=== PATIENT | male | born 1945 | race Two or more races ===

== ENCOUNTER 2022-09-14 15:26 | Emergency (ER) | payer OTHER ==
[~2022-09-14] VITALS: Ht 167.6 cm; Wt 99.8 kg
[2022-09-14] MEDS ORDERED: AVAPRO150 MG (15:29)
[2022-09-14] MEDS ORDERED: TOPROL XL25 M1 (15:29)
[2022-09-15] MEDS ORDERED: HUMALOG100 UNIT/1 (13:56)
== END 2022-09-14 20:09 | disposition home or self-care (01) ==
LOC: ER 15:26
DX: J45.998 Other asthma (principal); K52.9 Noninfective gastroenteritis and colitis, unspecified; I10 Essential (primary) hypertension
CPT/HCPCS: 36415; 94640; 96365; 99284; J2930; J3490

== ENCOUNTER 2022-09-15 13:47 | Inpatient (IN) | payer OTHER ==
[~2022-09-15] VITALS: Ht 167.6 cm; Wt 99.8 kg
[~2022-09-15 13:47] MED LIST: AVAPRO150 MG; TOPROL XL25 M1
[2022-09-15] MEDS ORDERED: HUMALOG100 UNIT/1 (13:56)
[2022-09-22] MEDS ORDERED: METOPROLOL TART50 MG PO (17:03)
[2022-09-22] MEDS ORDERED: HUMALOG100 UNIT/1 SUBCUTANEO (17:03)
[2022-09-22] MEDS ORDERED: AVAPRO300 MG PO (17:03)
[2022-09-22] MEDS ORDERED: ELIQUIS5 MG PO (17:03)
[2022-09-22] MEDS ORDERED: Lantus 1000 UNITS/10 SUBCUTANEO ×2 (17:03)
[2022-09-22] MEDS ORDERED: LIPITOR40 M1 PO (17:03)
[2022-09-22] MEDS ORDERED: Procardia Xl 30MG TA PO (17:03)
== END 2022-09-22 17:31 | disposition home or self-care (01) | DRG 281 ==
LOC: ER 13:47 → ICU-2 19:53 → MEDJ 09-17 12:06
PROVIDERS: ADMIT Internal Medicine; ATTEND Internal Medicine
PROC: B24BZZZ Ultrasonography of Heart with Aorta (ICD-10-PCS; principal; 2022-09-15)
PROC: 4A12X4Z Monitoring of Cardiac Electrical Activity, External Approach (ICD-10-PCS; 2022-09-17)
DX: I48.92 Unspecified atrial flutter (principal); I21.A1 Myocardial infarction type 2; I13.0 Hypertensive heart and chronic kidney disease with heart failure and stage 1 through stage 4 chronic kidney disease, or unspecified chronic kidney disease; N17.9 Acute kidney failure, unspecified; N39.0 Urinary tract infection, site not specified; E86.0 Dehydration; I48.0 Paroxysmal atrial fibrillation; J20.9 Acute bronchitis, unspecified; I35.0 Nonrheumatic aortic (valve) stenosis; I25.10 Atherosclerotic heart disease of native coronary artery without angina pectoris; Z79.4 Long term (current) use of insulin; E11.65 Type 2 diabetes mellitus with hyperglycemia; E11.22 Type 2 diabetes mellitus with diabetic chronic kidney disease; N18.2 Chronic kidney disease, stage 2 (mild); E66.8 Other obesity; J44.9 Chronic obstructive pulmonary disease, unspecified; G47.33 Obstructive sleep apnea (adult) (pediatric); Z95.1 Presence of aortocoronary bypass graft

== ENCOUNTER 2024-09-11 12:19 | Inpatient (IN) | payer OTHER ==
[~2024-09-11] VITALS: Ht 167.6 cm; Wt 90.7 kg
[~2024-09-11 12:19] MED LIST changes: +AVAPRO300 MG PO; +ELIQUIS5 MG PO; +HUMALOG100 UNIT/1; +HUMALOG100 UNIT/1 SUBCUTANEO; +LIPITOR40 M1 PO; +Lantus 1000 UNITS/10 SUBCUTANEO; +METOPROLOL TART50 MG PO; +NEURONTIN600 M1; +Procardia Xl 30MG TA PO
[2024-09-11] MEDS ORDERED: ELIQUIS5 MG PO (13:27)
[2024-09-11] MEDS ORDERED: MOUNJARO7.5 MG/0.5 SQ (13:27)
[2024-09-11] MEDS ORDERED: NIFEDIPINE ER30 M1 PO (13:27)
[2024-09-11] MEDS ORDERED: BUSPIRONE HCL7.5 MG PO (13:28)
[2024-09-11] MEDS ORDERED: DILTIAZEM HCL 125MG/25ML VIAL IV SCH (13:45)
[2024-09-11 13:58] LABS: BASO % 0.5 % (0.1-1.2); EOS # 0.39 (0.04-0.54); EOS % 3.4 % (0.7-7.0); LYMPH # 2.56 (1.18-3.74); LYMPH % 22.3 % (19.3-53.1); MEAN PLATELET VOLUME 10.50 fl (9.4-12.4); MONO # 0.87 (0.24-0.82); MONO % 7.6 % (4.7-12.5); NEUT # 7.49 (1.56-6.13); NEUT % 65.3 % (34.0-71.1); RED CELL DISTRIBUTION WIDTH 13.3 % (11.6-14.4)
[2024-09-11] MEDS ORDERED: DILTIAZEM HCL 25 MG/5 ML VIAL IV ONE (14:00)
[2024-09-11 16:30] LABS: COVID-19 AG NEGATIVE (NEGATIVE)
[2024-09-11] MEDS ORDERED: TICAGRELOR 90 MG TABLET PO ONE (19:00)
[2024-09-11] MEDS ORDERED: ASPIRIN 81 MG TABLET.EC PO SCH (20:50)
[2024-09-11] MEDS ORDERED: CLOPIDOGREL BISULFATE 75 MG TABLET PO SCH (20:50)
[2024-09-11] MEDS ORDERED: ATORVASTATIN CALCIUM 40 MG TABLET PO SCH (20:51)
[2024-09-11] MEDS ORDERED: ENOXAPARIN SODIUM 80 MG/0.8 ML SYRINGE SUBCUTANEO SCH (20:51)
[2024-09-11] MEDS ORDERED: NITROGLYCERIN IN 5 % DEXTROSE 250 ML IV SCH (21:00)
[2024-09-11] MEDS ORDERED: APIXABAN 5 MG TABLET PO SCH (21:08)
[2024-09-11] MEDS ORDERED: DEXTROSE 50 % IN WATER 0.5 G/ML DISP.SYRIN IV PRN (21:15)
[2024-09-11] MEDS ORDERED: INSULIN LISPRO 1,000 UNIT/10 ML UNITS SUBCUTANEO PRN (21:15)
[2024-09-11] MEDS ORDERED: MORPHINE SULFATE 2 MG/ML CARTRIDGE IV PRN (21:15)
[2024-09-11 22:02] LABS: INR 1.07
[2024-09-11 22:06] LABS: ALT/SGPT 18.0 U/L (12-78); AST/SGOT 14.0 U/L (15-37); BILIRUBIN TOTAL 0.72 mg/dL (0.3-1.2); BUN CREA RATIO 27.0 (7.0-25.0); CREATININE SERUM 0.63 mg/dL (0.70-1.30); GFR 123.49; GLOBULINA 3.4 G/DL (2.4-3.5); OSMOLALITY SERUM 287.0 MOSM/KG (275-295)
[2024-09-11 22:13] LABS: GLUCOSE FASTING 248.0 mg/dL (65-100)
[2024-09-11 22:28] VITALS: BP 122/70; O2SAT 95
[2024-09-11 22:56] VITALS: BP 113/65; O2SAT 96
[2024-09-11 22:56] LABS: CHOL HDL RATIO 4.1 (0-5.0); HDL 50.0 mg/dl (40-60); LDL 118.0 mg/dl (0-130); VLDL 38.0 (0-39)
[2024-09-11 23:51] LABS: ABG PH 7.429 (7.35-7.45); BICARBONATE 24.9 mmol/l (23-25); o2 21 %
[2024-09-11 23:52] LABS: ABG PO2 72.4 mmHg (80-100)
[2024-09-12] VITALS (7 sets, daily range): BP systolic 120–133; BP diastolic 64–74; O2SAT 90–98
[2024-09-12] MEDS ORDERED: NITROGLYCERIN IN 5 % DEXTROSE 250 ML IV SCH (06:45)
[2024-09-12] MEDS ORDERED: DEXTROSE 50 % IN WATER 0.5 G/ML VIAL IV PRN (06:45)
[2024-09-12] MEDS ORDERED: METOPROLOL SUCCINATE 50 MG TAB.SR.24H PO SCH (09:00)
[2024-09-12] MEDS ORDERED: ALBUTEROL SULFATE 0.5 ML/2.5 MG SOLUTION IH PRN (11:45)
[2024-09-12] MEDS ORDERED: LEVALBUTEROL HCL 0.63 MG/3 ML SOLUTION IH SCH (11:45)
[2024-09-13] VITALS (9 sets, daily range): BP systolic 120–147; BP diastolic 74–75; O2SAT 94–100
[2024-09-14 02:00] VITALS: BP 139/80
[2024-09-14 05:00] VITALS: O2SAT 91
[2024-09-14] MEDS ORDERED: AMIODARONE HCL 50 MG/ML AMPUL IV ONE (07:32)
[2024-09-14] MEDS ORDERED: AMIODARONE HCL 50 MG/ML AMPUL IV STA (07:44)
[2024-09-14] MEDS ORDERED: AMIODARONE IN DEXTROSE,ISO-OSM 360 MG/200 ML IV.SOLN IV SCH (07:45)
[2024-09-14] MEDS ORDERED: AMIODARONE HCL 900 MG in DEXTROSE 5 % IN WATER 500 ML IV SCH ×2 (08:15→14:00)
[2024-09-14 08:51] VITALS: BP 89/64; O2SAT 95
[2024-09-14 08:54] VITALS: O2SAT 97
[2024-09-14 11:47] LABS: BASO % 0.3 % (0.1-1.2); EOS # 0.06 (0.04-0.54); EOS % 0.6 % (0.7-7.0); LYMPH # 1.04 (1.18-3.74); LYMPH % 10.7 % (19.3-53.1); MEAN PLATELET VOLUME 10.80 fl (9.4-12.4); MONO # 0.51 (0.24-0.82); MONO % 5.2 % (4.7-12.5); NEUT # 8.03 (1.56-6.13); NEUT % 82.7 % (34.0-71.1); RED CELL DISTRIBUTION WIDTH 13.5 % (11.6-14.4)
[2024-09-14 12:25] LABS: INR 1.09
[2024-09-14 12:35] LABS: BUN CREA RATIO 25.0 (7.0-25.0); CREATININE SERUM 0.61 mg/dL (0.70-1.30); GFR 128.17; OSMOLALITY SERUM 290.0 MOSM/KG (275-295)
[2024-09-14 12:36] LABS: GLUCOSE FASTING 279.0 mg/dL (65-100)
== END 2024-09-14 13:51 | disposition designated cancer center or children's hospital (05) | DRG 281 ==
LOC: ER 12:40 → MEDJ 20:49
PROVIDERS: Emergency Medicine; General Practice; ADMIT Student in an Organized Health Care Education/Training Program; ATTEND Student in an Organized Health Care Education/Training Program
PROC: B246ZZZ Ultrasonography of Right and Left Heart (ICD-10-PCS; principal; 2024-09-11)
PROC: 3E0F7GC Introduction of Other Therapeutic Substance into Respiratory Tract, Via Natural or Artificial Opening (ICD-10-PCS; 2024-09-12)
PROC: 4A12X4Z Monitoring of Cardiac Electrical Activity, External Approach (ICD-10-PCS; 2024-09-12)
DX: I21.4 Non-ST elevation (NSTEMI) myocardial infarction (principal); I48.20 Chronic atrial fibrillation, unspecified; I24.9 Acute ischemic heart disease, unspecified; I10 Essential (primary) hypertension